=== PATIENT | female | born 1990 | race Caucasian/White ===

== ENCOUNTER → 2016-11-04 | Outpatient (CLI) | payer BC ==
--- NOTE | ~2016-11-04 | XA198 ---
[facility] A Service of [facility] & [facility] RADIOLOGY TEXT RESULTS PATIENT: MAT[facility] TH[facility]AS [facility] [birth year] UN[facility] #: [id number] AGE: [address]: Jax Wyman II, MD SEX: F ORDER DR: [id number] [facility] [address] [place], [place] [address] [id number] O MR#: [id number] Acc #: [id number] NAME: MATAIS THOMAS : 1990 SEX: F STUDY DATE/TIME: 11/04/2016 7:31 UNIT: [facility] ROOM: STUDY DESCRIPTION: XA Spinal Puncture Attending Physician: Jax Wyman II., M.D. Referring Physician: Jax Wyman II., M.D. Ordering Physician: Jax Wyman II., M.D. Primary Care Physician: Generic Doctor Not In System MEDICAL IMAGING REPORT This report is preliminary unless electronic signature is present EXAM Fluoroscopically-guided lumbar puncture INDICATION Pseudo tumor cerebri. patient's most recent lumbar puncture was October 12, 2015. She has developed recurrent optic nerve edema. PROCEDURE The risks, benefits, and alternatives to the procedure were explained to the patient, and signed, informed consent was obtained. She was placed prone on the angiographic table, was prepped and draped in the usual sterile fashion. Time-out was performed as per protocol. The skin and subcutaneous tissues were anesthetized with buffered lidocaine. A 20-gauge spinal needle was advanced into the spinal canal. Removal of the inner stylet yielded clear CSF. Opening pressure was 41. And I removed about 18 mL of clear CSF. Closing pressure was 17. Total fluoroscopy time was 0.9 minutes. AK was 112 mGy. IMPRESSION Technically successful fluoroscopically-guided lumbar puncture as noted above. Fluoroscopy was used during the procedure and permanent images were saved. Dictated by... Sil Mauricio M.D. THIS IS AN ELECTRONICALLY VERIFIED REPORT Sil Mauricio M.D. at 11/05/2016 4:42 PM HIPOLITO/ludy TD: 11/05/2016 09:12 JOB #: [id number] [facility] A Service of [facility] RADIOLOGY TEXT RESULTS PATIENT: MATIAS THOMAS LOCATION: [facility] #: [id number] : [birth year] UNIT #: [id number] AGE: [address]: Jax Wyman II, MD SEX: F ORDER DR: MEDICAL IMAGING REPORT Page 1 of 1 COPY
[2016-11-04 07:14] LABS: HEMOGLOBIN 13.6 gm/dL (12.0-16.0); MEAN CELL VOLUME 90.4 FL (83-96); MEAN CORPUSCULAR HGB CONC 33.2 g/dL (30-36); MEAN PLATELET VOLUME 7.7 FL (6.5-11.5); RED BLOOD COUNT 4.53 X10e (3.90-5.30); RED CELL DISTRIBUTION WIDTH 13.9 % (11.0-15.5)
[2016-11-04 07:30] LABS: PARTIAL THROMBOPLASTIN TIME 29.2 SECONDS (23.5-31.3); PROTHROMBIN TIME (PATIENT) 10.2 SECONDS (9.6-11.5)
== END | disposition home or self-care (01) ==
LOC: CIVR 06:53
PROVIDERS: Psychiatry & Neurology Neurology
PROC: 009U3ZZ Drainage of Spinal Canal, Percutaneous Approach (ICD-10-PCS; principal; 2016-11-04)
DX: H53.9 Unspecified visual disturbance (principal)
CPT/HCPCS: 36415; 77003; 85027; 85610; 85730; C1713